=== PATIENT | female | born 1960 | race Caucasian/White ===

== ENCOUNTER 2016-11-25 23:52 | Inpatient (IN) | payer BC ==
[~2016-11-25] VITALS: Ht 172.7 cm; Wt 150.0 kg
--- NOTE | 2016-11-26 02:42 | ER ---
ADMIT: 11/25/2016 RM/LOC: ER [facility] MR#: [id number] [address] [address] CYNDI MARTINEZ [address] [place] [address] Emergency Room Report SEX: F AGE: 56 : 1960 DATE: 11/25/2016 TIME: 2352 hours. Please refer to my T-sheet for complete H and P. HISTORY OF PRESENT ILLNESS: Briefly, the patient is a 56-year-old, who comes in with abdominal pain. It started at 6:30 tonight. She has been nauseous and vomiting. It goes to her back. She rates it 7/10. She has a history of a gastric bypass. She has a port. She has a history of MS. Has had her gallbladder removed also. PHYSICAL EXAMINATION: VITAL SIGNS: Blood pressure 176/77, pulse 67, respirations 22, temp 95.4, sat 98%. GENERAL: Mild distress. HEENT: Grossly normal. LUNGS: Clear. HEART: Regular. ABDOMEN: Tender in the epigastric. She has a little bit of guarding. No rebound. EXTREMITIES: No cyanosis, clubbing, or edema. EMERGENCY DEPARTMENT COURSE: Her CBC was normal except white count 12.9. Her chemistries were normal except glucose 145 and a lipase of 12,342. Her AST was 55. We titrated pain medications. I talked to her in depth. I talked to Dr. Grijalva. We will admit to the hospital. ASSESSMENT: Acute pancreatitis. PLAN: Admit to the hospital. Kushal Berry MD/ alexandr JOB #: [id number] CC: Kushal Berry MD, Attending Physician Azael William DO, Family Physician
--- NOTE | 2016-11-29 07:44 | HP ---
ADMIT: 11/26/2016 RM/LOC: 619 [facility] MR#: [id number] [facility]#: [id number] [address] [address] CYNDI MARTINEZ [address] [place] [address] History and Physical SEX: F AGE: 56 : 1960 DATE OF SERVICE: REASON FOR ADMISSION: Development of severe mid-epigastric pain radiating into her back, started yesterday evening after supper. She was brought to the emergency room for further evaluation. In the ER, sodium was 143, potassium 3.7, BUN and creatinine 17 and 0.6, lipase of 12,342, and AST 55. UA showed nitrate, 2+ leukocytes, white count was [address], hemoglobin 13.4, and platelet count 216,000. She then was admitted for acute pancreatitis. PAST MEDICAL HISTORY: As above of obesity, multiple sclerosis with disability, decreased movement, uses a walker, history of urinary incontinence, status post gastric bypass, history of hammertoe surgery, left inguinal hernia repair, and cholecystectomy. CURRENT MEDS: Amitriptyline 25 mg at bedtime, baclofen 10 mg, two tablets at bedtime, baclofen 10 mg a.m. and at noon, levothyroxine 50 mcg daily, Lyrica 50 mg b.i.d., paroxetine 40 mg every day, iron, magnesium, Tylenol, vision formula, and vitamin D. CHRONIC MEDICAL CONDITIONS: Hypothyroidism. ALLERGIES: NO KNOWN DRUG ALLERGIES. SOCIAL HISTORY: She lives independently with assistance. She does not smoke or drink. FAMILY HISTORY: Noncontributory. REVIEW OF SYSTEMS: She reports that she has been feeling well up until this time. She has not had any new changes in medications except the addition of Lyrica. She has had no fever, chills, or other constitutional symptoms. PHYSICAL EXAMINATION: GENERAL: She is alert, articulate, she has less pain this morning. ABDOMEN: Obese, soft. Positive bowel sounds present. GENERAL: She is alert and articulate. HEENT: Normal. HEART: Regular rhythm. LUNGS: Clear, but diminished to auscultation. ABDOMEN: Obese and soft. Positive bowel sounds present. Her tenderness has improved. EXTREMITIES: Very large with no edema. ADMIT: 11/26/2016 RM/LOC: 619 [facility] MR#: [id number] [address] [address] CYNDI MARTINEZ [address] [place] [address] History and Physical SEX: F AGE: 56 : 1960 ASSESSMENT AND PLAN: Admission of a 56-year-old white female with a first episode of acute pancreatitis. We will obtain a CT scan for further evaluation. She is status post cholecystectomy. Liver function studies are not significant, abnormal. She does have some mild leukocytosis. Kidney function is stable. We will admit for IV hydration. Further evaluation as above with CT scan. History of multiple sclerosis. She is 20 days away. She has had her IV infusion approximately 20 days ago. I do not feel that it has any relationship to this acute episode. History of hypothyroidism. Continue replacement therapy. Evidence of a urinary tract infection. We will await cultures. We will cover with Levaquin. We will continue to follow closely, supportive care. Triny Grijalva MD/ alexandr JOB #: [id number] CC: Azael William, Attending Physician Azael William, Family Physician
[2016-12-01] MEDS ORDERED: ELAVIL-DPS25 MG PO (14:37)
[2016-12-01] MEDS ORDERED: BACLOFEN10 MG PO ×2 (14:37→14:38)
[2016-12-01] MEDS ORDERED: LEVOTHYROXINE50 MCG PO (14:38)
[2016-12-01] MEDS ORDERED: IRON18 MG PO (14:38)
[2016-12-01] MEDS ORDERED: LYRICA50 MG PO (14:38)
[2016-12-01] MEDS ORDERED: PAXIL40 MG PO (14:38)
[2016-12-01] MEDS ORDERED: TYLENOL DPS325 MG PO (14:39)
[2016-12-01] MEDS ORDERED: MAGNESIUM250 M1 PO (14:39)
[2016-12-01] MEDS ORDERED: PEPCID DPS20 MG PO (14:40)
[2016-12-01] MEDS ORDERED: VITAMIN D35000 UNI1 PO (14:40)
[2016-12-01] MEDS ORDERED: VISION FORMULA PO (14:40)
[2016-12-01] MEDS ORDERED: OMNICEF DPS300 MG PO (14:41)
[2016-12-01] MEDS ORDERED: TYSABRI300 MG/15 IV (14:41)
--- NOTE | 2017-01-05 08:09 | DS ---
ADMIT: 11/26/2016 RM/LOC: 619 [facility] MR#: [id number] [facility]#: [id number] [address] [address] CYNDI MARTINEZ [address] [place] [address] General Discharge Summary SEX: F AGE: 56 : 1960 ADMISSION DATE: 11/26/2016 DISCHARGE DATE: 11/30/2016 REASON FOR HOSPITALIZATION: Epigastric abdominal pain. HISTORY OF PRESENT ILLNESS: The patient is a 56-year-old female patient, who developed severe mid epigastric pain radiating into her back, which started after she ate her evening meal the day before admission. She was brought to the emergency room for further evaluation. In the Emergency room, was found to have a lipase of 12,342, and was immediately diagnosed with an acute pancreatitis. HOSPITAL COURSE: She was admitted inpatient and started on IV fluids, IV Pepcid, morphine, and clear liquid sips and ice chips. She underwent further assessment with CAT scan of the abdomen, lipid profile, and general workup. She was found to have gram-negative oriana urinary tract infection and was started on ceftriaxone. This turned out to be E. coli, which was sensitive. Her multiple sclerosis remained stable throughout her hospital stay. On 11/29, we reduced her IV fluids, increased her activities, and slowly advanced her diet. By 11/30, she was feeling well, having very minimal abdominal discomfort. Her amylase and liver function tests were trending down, and we felt that she was appropriate for dismissal home and we were going to schedule an outpatient MRCP evaluation. She does not return to work until clearance on 12/06/2016. She was to continue Omnicef 300 mg b.i.d. for 5 additional days. FINAL DIAGNOSES: 1. Acute pancreatitis. 2. Multiple sclerosis. 3. Escherichia coli urinary tract infection. Azael William DO/ alexandr JOB #: [id number] CC: Azael Wililam DO, Attending Physician Azael William DO, Family Physician
== END 2016-11-30 13:05 | disposition home or self-care (01) | DRG 439 ==
LOC: ER 23:52 → 6PED 11-26 01:13
PROVIDERS: ADMIT Internal Medicine
DX: K85.90 Acute pancreatitis without necrosis or infection, unspecified (principal); N39.0 Urinary tract infection, site not specified; Z68.43 Body mass index [BMI] 50.0-59.9, adult; B96.20 Unspecified Escherichia coli [E. coli] as the cause of diseases classified elsewhere; G35 Multiple sclerosis; E66.01 Morbid (severe) obesity due to excess calories; E03.9 Hypothyroidism, unspecified; Z98.84 Bariatric surgery status

== ENCOUNTER → 2016-12-01 | Outpatient (CLI) | payer BC ==
[~2016-12-01] MED LIST: BACLOFEN10 MG PO; ELAVIL-DPS25 MG PO; IRON18 MG PO; LEVOTHYROXINE50 MCG PO; LYRICA50 MG PO; MAGNESIUM250 M1 PO; OMNICEF DPS300 MG PO; PAXIL40 MG PO; PEPCID DPS20 MG PO; TYLENOL DPS325 MG PO; TYSABRI300 MG/15 IV; VISION FORMULA PO; VITAMIN D35000 UNI1 PO
== END | disposition home or self-care (01) ==
LOC: RAD.S 07:46
DX: K85.90 Acute pancreatitis without necrosis or infection, unspecified (principal); G35 Multiple sclerosis; N39.0 Urinary tract infection, site not specified; K81.9 Cholecystitis, unspecified